=== PATIENT | female | born 1945 | race Asian ===

== ENCOUNTER 2024-06-10 13:43 | Inpatient (IN) | payer MEDICARE ==
[~2024-06-10] VITALS: Ht 160 cm; Wt 54.5 kg
[2024-06-10 14:15] LABS: BASOPHILS # (AUTO) 0.1 X10'3 (0-0.2); BASOPHILS % (AUTO) 0.7 % (0-1); EOSINOPHILS # (AUTO) 0.1 X10'3 (0-0.9); EOSINOPHILS % (AUTO) 1.3 % (0-6); HEMATOCRIT 36.9 % (35.0-45.0); LYMPHOCYTES # (AUTO) 2.3 X10'3 (1.1-4.8); LYMPHOCYTES % (AUTO) 26.3 % (21-51); MEAN CORPUSCULAR HEMOGLOBIN 33.6 PG (27.0-31.0); MEAN CORPUSCULAR HGB CONC 32.5 g/dL (33.0-36.5); MEAN CORPUSCULAR VOLUME 103.5 FL (78-98); MEAN PLATELET VOLUME 9.8 FL (7.4-10.4); MONOCYTES # (AUTO) 0.7 X10'3 (0-0.9); NEUTROPHILS # (AUTO) 5.7 X10'3 (1.8-7.7); NEUTROPHILS % (AUTO) 63.7 % (42-75); PLATELET COUNT 157 X10'3 (140-440); RED BLOOD COUNT 3.57 X10'6 (4.20-5.60); RED CELL DISTRIBUTION WIDTH 14.4 % (11.5-14.5); WHITE BLOOD COUNT 8.9 X10'3 (4.5-11.0)
[2024-06-10] MEDS: naloxone 0.4 mg/ml inj IV ONE ×3 (14:44→16:56)
[2024-06-10] MEDS: normal saline 1000ML IV soln IV ONE (14:45)
[2024-06-10 14:53] LABS: ALANINE AMINOTRANSFERASE 22 U/L (12-78); ALBUMIN 3.3 G/DL (3.4-5.0); ALBUMIN/GLOBULIN RATIO 0.9 (1.1-1.5); ALKALINE PHOSPHATASE 81 IU/L (46-116); ANION GAP 12 (8-16); ASPARTATE AMINO TRANSFERASE 30 U/L (10-37); BILIRUBIN,TOTAL 0.4 MG/DL (0.1-1.0); BLOOD UREA NITROGEN 68 MG/DL (7-18); BUN/CREATININE RATIO 15.9 (10.0-20.0); CALCIUM 8.6 MG/DL (8.5-10.1); CHLORIDE 105 MMOL/L (99-107); CREATININE 4.28 MG/DL (0.40-0.90); GLUCOSE 88 MG/DL (70-104); POTASSIUM 4.9 MMOL/L (3.5-5.1); SODIUM 138 MMOL/L (135-145); TOTAL CARBON DIOXIDE 21.1 MMOL/L (24-32); TOTAL PROTEIN 6.8 G/DL (6.4-8.2); eCRCL 9 ML/MIN; eGFR 10 ML/MIN
[2024-06-10 14:58] LABS: ETHANOL < 10 MG/DL (<10); MAGNESIUM 2.3 MG/DL (1.5-2.4); THYROID STIMULATING HORMONE 5.67 ulU/ml (0.34-4.50)
[2024-06-10 16:07] LABS: BILIRUBIN,URINE NEGATIVE (Neg); CLARITY,URINE SLIGHTLY CLOUDY (Clear); COLOR,URINE YELLOW (Yellow); GLUCOSE, URINE NEGATIVE (Neg); KETONES,URINE NEGATIVE (Neg); LEUKOCYTE ESTERASE ,URINE SMALL (Neg); NITRITES, URINE NEGATIVE (Neg); OCCULT BLOOD,URINE TRACE-INTACT (Neg); PH,URINE 5.5 (4.8-8.0); PROTEIN,URINE TRACE mg/dl (Neg); UROBILINOGEN,URINE 0.2 E.U/dL (0.2-1.0)
[2024-06-10 16:08] LABS: UA COLLECTION TYPE FOLEY CATH
[2024-06-10 16:09] LABS: URINE AMPHETAMINE SCREEN NEGATIVE (Neg); URINE BARBITUATE SCREEN NEGATIVE (Neg); URINE BENZODIAZEPINES SCREEN NEGATIVE (Neg); URINE CANNABINOID SCREEN POSITIVE (Neg); URINE COCAINE SCREEN NEGATIVE (Neg); URINE METHADONE SCREEN NEGATIVE (Neg); URINE OPIATE SCREEN POSITIVE (Neg); URINE PHENCYCLIDINE SCREEN NEGATIVE (Neg)
[2024-06-10 16:42] LABS: HYALINE CASTS >30 /LPF (NEGATIVE); SQUAMOUS EPITHELIAL CELL,UR MANY /LPF (FEW)
[2024-06-10 16:43] LABS: TRANSITIONAL EPI CELLS,URINE FEW /HPF; WBC,URINE 50-100 /HPF (0-4)
[2024-06-10 16:44] LABS: BACTERIA,URINE 2+ /HPF (Neg)
[2024-06-10] MEDS ORDERED: potassium Cl 20 mEq SR tablet PO PRN ×2 (17:45)
[2024-06-10] MEDS ORDERED: acetaminophen 325mg tablet PO PRN (17:45)
[2024-06-10] MEDS ORDERED: magnesium Cl slow-release 64mg tablet PO PRN (17:45)
[2024-06-10] MEDS ORDERED: magnesium sulf-water 2g/50mL 50 ML IV PRN (17:45)
[2024-06-10] MEDS ORDERED: bisacodyl 10mg suppository rectal RC PRN (17:45)
[2024-06-10] MEDS ORDERED: ondansetron/PF 4mg/2ml inj IV PRN (17:45)
[2024-06-10] MEDS ORDERED: magnesium sulf-water 4G/100mL 100 ML IV PRN (17:45)
[2024-06-10] MEDS ORDERED: potassium Cl 40MEQ/1/2NS 520ml 520 ML IV PRN (17:45)
[2024-06-10] MEDS: CefTRIAXone/D5W-Rocephin 1gm 50 ML IV STA (17:55)
[2024-06-10] MEDS: normal saline 1000ml 1,000 ML IV SCH (18:00)
[2024-06-10] MEDS ORDERED: GABA-530 PO (19:26)
[2024-06-10] MEDS ORDERED: SENN-137 PO (19:26)
[2024-06-10] MEDS ORDERED: DULO-31 PO (19:26)
[2024-06-10] MEDS ORDERED: AMLO5TAB PO (19:26)
[2024-06-10] MEDS ORDERED: MIRT-92 PO (19:26)
[2024-06-10] MEDS ORDERED: ATOR40TA PO (19:26)
[2024-06-10] MEDS ORDERED: LISI1TAB53 PO (19:26)
[2024-06-10] MEDS ORDERED: ASPI-1265 PO (19:26)
[2024-06-10] MEDS ORDERED: LEVO112T52 PO (19:26)
[2024-06-10] MEDS: heparin, porcine 5000 units/ml vial SQ SCH (20:04)
[2024-06-10] MEDS: normal saline 1000ML IV soln IVB ONE (20:35)
[2024-06-10] MEDS: CALCIUM GLUC 1gm/50ml NACL,iso 50 ML IV ONE (21:03)
[2024-06-11] MEDS: acetaminophen 325mg tablet PO SCH (00:07)
[2024-06-11] MEDS: NORepinephrine 8mg/ 250ml NS 250 ML IV PRN (02:33)
[2024-06-11 02:56] LABS: BASOPHILS % (AUTO) 0.6 % (0-1); EOSINOPHILS # (AUTO) 0.1 X10'3 (0-0.9); EOSINOPHILS % (AUTO) 1.3 % (0-6); HEMATOCRIT 31.2 % (35.0-45.0); HEMOGLOBIN 10.3 g/dl (12.0-16.0); LYMPHOCYTES # (AUTO) 2.1 X10'3 (1.1-4.8); LYMPHOCYTES % (AUTO) 34.2 % (21-51); MEAN CORPUSCULAR HEMOGLOBIN 34.5 PG (27.0-31.0); MEAN CORPUSCULAR VOLUME 104.5 FL (78-98); MEAN PLATELET VOLUME 10.2 FL (7.4-10.4); MONOCYTES # (AUTO) 0.6 X10'3 (0-0.9); MONOCYTES % (AUTO) 9.3 % (2-12); NEUTROPHILS # (AUTO) 3.3 X10'3 (1.8-7.7); NEUTROPHILS % (AUTO) 54.6 % (42-75); PLATELET COUNT 119 X10'3 (140-440); RED BLOOD COUNT 2.99 X10'6 (4.20-5.60); RED CELL DISTRIBUTION WIDTH 14.4 % (11.5-14.5); WHITE BLOOD COUNT 6.1 X10'3 (4.5-11.0)
[2024-06-11 03:10] LABS: ALANINE AMINOTRANSFERASE 19 U/L (12-78); ALBUMIN 2.5 G/DL (3.4-5.0); ALBUMIN/GLOBULIN RATIO 0.8 (1.1-1.5); ALKALINE PHOSPHATASE 61 IU/L (46-116); ANION GAP 9 (8-16); ASPARTATE AMINO TRANSFERASE 27 U/L (10-37); BILIRUBIN,TOTAL 0.2 MG/DL (0.1-1.0); BLOOD UREA NITROGEN 59 MG/DL (7-18); BUN/CREATININE RATIO 17.9 (10.0-20.0); CALCIUM 7.8 MG/DL (8.5-10.1); CHLORIDE 113 MMOL/L (99-107); GLUCOSE 80 MG/DL (70-104); POTASSIUM 5.2 MMOL/L (3.5-5.1); SODIUM 142 MMOL/L (135-145); TOTAL CARBON DIOXIDE 20.3 MMOL/L (24-32); TOTAL PROTEIN 5.5 G/DL (6.4-8.2); eCRCL 11 ML/MIN; eGFR 13 ML/MIN
[2024-06-11] MEDS: nicotine 14mg patch - 24hr TD SCH (07:47)
[2024-06-11] MEDS: sodium polystyrene sulfonate 15gm/60ml oral suspension PO ONE (10:23)
[2024-06-11 16:45] VITALS: BP 150/70; PULSE 52; RESP 16; TEMP 97.6; O2SAT 98
[2024-06-11 18:00] VITALS: BP 140/63; PULSE 54; RESP 16; TEMP 97.6; O2SAT 95
[2024-06-11 20:00] VITALS: RESP 18; O2SAT 95
[2024-06-11] MEDS: aspirin 81mg tab.chew PO SCH (21:20)
[2024-06-11] MEDS: atorvastatin 20mg tablet PO SCH (21:20)
[2024-06-11 22:00] VITALS: BP 141/68; PULSE 56; RESP 22; TEMP 97.8; O2SAT 96
[2024-06-12 02:00] VITALS: BP 154/62; PULSE 56; RESP 22; TEMP 97.8; O2SAT 96
[2024-06-12 05:57] LABS: BASOPHILS % (AUTO) 0.8 % (0-1); EOSINOPHILS # (AUTO) 0.1 X10'3 (0-0.9); EOSINOPHILS % (AUTO) 1.6 % (0-6); HEMATOCRIT 32.9 % (35.0-45.0); HEMOGLOBIN 10.9 g/dl (12.0-16.0); LYMPHOCYTES # (AUTO) 1.3 X10'3 (1.1-4.8); LYMPHOCYTES % (AUTO) 23.8 % (21-51); MEAN CORPUSCULAR HEMOGLOBIN 33.7 PG (27.0-31.0); MEAN CORPUSCULAR HGB CONC 33.1 g/dL (33.0-36.5); MEAN CORPUSCULAR VOLUME 101.6 FL (78-98); MEAN PLATELET VOLUME 10.6 FL (7.4-10.4); MONOCYTES # (AUTO) 0.5 X10'3 (0-0.9); MONOCYTES % (AUTO) 8.3 % (2-12); NEUTROPHILS # (AUTO) 3.7 X10'3 (1.8-7.7); NEUTROPHILS % (AUTO) 65.5 % (42-75); PLATELET COUNT 131 X10'3 (140-440); RED BLOOD COUNT 3.23 X10'6 (4.20-5.60); RED CELL DISTRIBUTION WIDTH 13.5 % (11.5-14.5); WHITE BLOOD COUNT 5.6 X10'3 (4.5-11.0)
[2024-06-12 06:00] VITALS: BP 146/73; PULSE 61; RESP 18; TEMP 97.6; O2SAT 98
[2024-06-12 07:05] LABS: ALANINE AMINOTRANSFERASE 22 U/L (12-78); ALBUMIN 2.8 G/DL (3.4-5.0); ALBUMIN/GLOBULIN RATIO 0.9 (1.1-1.5); ALKALINE PHOSPHATASE 63 IU/L (46-116); ANION GAP 8 (8-16); ASPARTATE AMINO TRANSFERASE 23 U/L (10-37); BILIRUBIN,TOTAL 0.5 MG/DL (0.1-1.0); BLOOD UREA NITROGEN 36 MG/DL (7-18); CALCIUM 8.7 MG/DL (8.5-10.1); CHLORIDE 113 MMOL/L (99-107); CREATININE 1.89 MG/DL (0.40-0.90); GLUCOSE 83 MG/DL (70-104); POTASSIUM 3.7 MMOL/L (3.5-5.1); SODIUM 142 MMOL/L (135-145); TOTAL CARBON DIOXIDE 20.7 MMOL/L (24-32); TOTAL PROTEIN 5.9 G/DL (6.4-8.2); eCRCL 20 ML/MIN; eGFR 26 ML/MIN
[2024-06-12 08:00] VITALS: RESP 18; O2SAT 98
[2024-06-12] MEDS: levoTHYROXINE 112mcg tablet PO SCH (08:29)
[2024-06-12] MEDS ORDERED: AMLO5TAB PO (10:04)
[2024-06-12] MEDS ORDERED: DOCU-148 PO (10:04)
[2024-06-12] MEDS ORDERED: DULO-31 PO (10:04)
[2024-06-12] MEDS ORDERED: NICO-631 TD (10:06)
[2024-06-12] MEDS ORDERED: AMLO5TAB16 PO (12:07)
[2024-06-12 12:24] VITALS: PULSE 67
[2024-06-12] MEDS: lisinopril 5mg tablet PO ONE (12:24)
[2024-06-12 12:30] VITALS: BP 170/90
[2024-06-12] MEDS ORDERED: duloxetine 20mg capsule.DR PO SCH (18:00)
[2024-06-15] MEDS ORDERED: LOSA50TA64 PO (08:15)
[2024-06-15] MEDS ORDERED: CARV-50 PO (08:15)
[2024-06-16] MEDS ORDERED: MAGN500C4 PO (12:45)
[2024-06-16] MEDS ORDERED: POTA-208 PO (12:45)
[2024-06-16] MEDS ORDERED: LACT1CAP26 PO (12:45)
[2024-06-16] MEDS ORDERED: VANC250C12 PO (12:45)
== END 2024-06-12 13:04 | disposition home or self-care (01) | DRG 917 ==
LOC: ER 13:44 → ED HOLD 17:50 → PCU 3S 06-11 16:57
PROVIDERS: ADMIT Internal Medicine; ATTEND Internal Medicine
PROC: 05HY33Z Insertion of Infusion Device into Upper Vein, Percutaneous Approach (ICD-10-PCS; principal; 2024-06-11)
PROC: B54MZZA Ultrasonography of Right Upper Extremity Veins, Guidance (ICD-10-PCS; 2024-06-11)
DX: T40.2X1A Poisoning by other opioids, accidental (unintentional), initial encounter (principal); G92.8 Other toxic encephalopathy; N17.9 Acute kidney failure, unspecified; N18.4 Chronic kidney disease, stage 4 (severe); N39.0 Urinary tract infection, site not specified; I95.9 Hypotension, unspecified; I12.9 Hypertensive chronic kidney disease with stage 1 through stage 4 chronic kidney disease, or unspecified chronic kidney disease; Z79.899 Other long term (current) drug therapy; R00.1 Bradycardia, unspecified; E86.0 Dehydration; Z20.822 Contact with and (suspected) exposure to COVID-19; G89.4 Chronic pain syndrome; E87.5 Hyperkalemia; D69.6 Thrombocytopenia, unspecified; F17.210 Nicotine dependence, cigarettes, uncomplicated; E78.5 Hyperlipidemia, unspecified; E03.9 Hypothyroidism, unspecified; Y92.89 Other specified places as the place of occurrence of the external cause; Z79.891 Long term (current) use of opiate analgesic
CPT/HCPCS: 36415; 70450; 71045; 80053; 80305; 80320; 81001; 83605; 83735; 84145; 84443; 85025; 87040; 87081; 87088; 87811; 93005; 93306; 97116; 97162; 99285; A4615; A6258; C1751; C1758; G0378; J0610; J0696; J1644; J2310; J7030